=== PATIENT | female | born 1950 | race Caucasian/White ===

== ENCOUNTER 2022-04-06 14:14 | Inpatient (IN) | payer OTHER ==
[~2022-04-06] VITALS: Ht 149.9 cm; Wt 73.2 kg
[~2022-04-06 14:14] MED LIST: ALBU-118 IH; ATOR40TA PO; BUDE1AER IH; CIPR500T4 PO; OLAN2.5T1 PO; PRED5TAB7 PO; SYN.05 PO
[2022-04-06 14:29] VITALS: BP 138/89
--- NOTE | 2022-04-06 15:01 | NUR ---
PT IN CHAIR D. PT ON OXYGEN MONITORING AT THIS TIME, 94% RA.
[2022-04-06] MEDS ORDERED: ALBUTEROL 0.083% 2.5 MG/3 ML NEBU INH ONE (15:20)
[2022-04-06] MEDS ORDERED: methylPREDNISolone SS 125 MG/2 ML VIAL IVP ONE (15:20)
[2022-04-06] MEDS ORDERED: IPRATROPIUM 0.02% 0.5 MG/2.5 ML NEBU INH ONE (15:20)
[2022-04-06 15:39] LABS: BASOPHILS % (AUTO) 0.5 % (0.0-2.0); EOSINOPHILS # (AUTO) 0.1 K/uL (0-0.4); EOSINOPHILS % (AUTO) 1.3 % (0.0-4.0); HEMOGLOBIN 14.4 g/dL (12.0-16.0); LYMPHOCYTES # (AUTO) 1.3 K/uL (2.5-16.5); LYMPHOCYTES % (AUTO) 16.2 % (20.5-51.1); MEAN CORPUSCULAR HEMOGLOBIN 33 pg (27-31); MEAN CORPUSCULAR HGB CONC 33 g/dL (33-37); MEAN CORPUSCULAR VOLUME 97.7 fL (80-94); MONOCYTES % (AUTO) 11.7 % (1.7-9.3); NEUTROPHILS # (AUTO) 5.9 K/uL (1.8-7.7); NEUTROPHILS % (AUTO) 70.3 % (42.2-75.2); PLATELET COUNT (AUTO) 240 K/uL (140-450); RED BLOOD CELL COUNT(AUTO) 4.41 MIL/uL (4.20-5.40); RED CELL DISTRIBUTION WIDTH 14.4 % (11.6-13.7); WHITE BLOOD COUNT (AUTO) 8.3 K/uL (4.8-10.8)
[2022-04-06 15:57] LABS: ALBUMIN 3.1 g/dL (3.4-5.0); ANION GAP 8.2 (8-16); ASPARTATE AMINOTRANSFERASE 41 U/L (15-37); CARBON DIOXIDE 33.8 mmol/L (21-32); CHLORIDE 102 mmol/L (98-107); CREATININE 0.9 mg/dL (0.6-1.3); GLUCOSE 83 mg/dL (74-106); SODIUM SERUM 140 mmol/L (136-145); TOTAL BILIRUBIN 0.5 mg/dL (0.0-1.0); UREA NITROGEN, BLOOD 14 mg/dL (7-18)
--- NOTE | 2022-04-06 16:37 | NUR ---
SPO2 DROPPED TO 84%. DR MARK COLLINS, PT PLACED ON 2L N.C
[2022-04-06] MEDS ORDERED: methylPREDNISolone SS 125 MG/2 ML VIAL ONE (16:59)
--- NOTE | 2022-04-06 17:56 | NUR ---
SPO2 93% ON 3L N/C PER DR FLORES. PT SLEEPING AT THIS TIME, NO SIGNS OF DISTRESS.
[2022-04-06] MEDS ORDERED: LEVOFLOXACIN 500 MG/D5W PREMIX 100 ML IV ONE (18:45)
[2022-04-06] MEDS ORDERED: POTASSIUM CHLORIDE 10 MEQ TABER PO PRN (18:50)
[2022-04-06] MEDS ORDERED: ZOLPIDEM 5 MG TAB PO PRN (18:50)
[2022-04-06] MEDS ORDERED: MAG SULF 2000 MG/WATER PREMIX 50 ML IV PRN (18:50)
[2022-04-06] MEDS ORDERED: KCL 20 MEQ/WATER INJ PREMIX 200 ML IV PRN (18:50)
[2022-04-06] MEDS ORDERED: HYDROcodone/APAP 5/325 MG 1 TAB TAB PO PRN (18:50)
[2022-04-06] MEDS ORDERED: ACETAMINOPHEN 325 MG TAB PO PRN (18:50)
[2022-04-06] MEDS ORDERED: ONDANSETRON 4 MG/2 ML VIAL IVP PRN (18:50)
[2022-04-06] MEDS: ALBUTEROL SULFATE/IPRATROPIU 3 ML SOL IH SCH (19:29)
--- NOTE | 2022-04-06 21:00 | NUR ---
DUE MEDS GIVEN , PATENT TOLERATED WELL.
[2022-04-07] MEDS: ALBUTEROL SULFATE/IPRATROPIU 3 ML SOL IH SCH ×4 (00:45→23:05)
--- NOTE | 2022-04-07 04:32 | NUR ---
pt came to bed 3 at 0432. she is alert and oriented x 4 with nasal canulla 3 and satting at 90 persent . she is ambulatory. follow commands.
[2022-04-07 05:57] LABS: ANION GAP 13.4 (8-16); CARBON DIOXIDE 30.1 mmol/L (21-32); CHLORIDE 101 mmol/L (98-107); CREATININE 0.8 mg/dL (0.6-1.3); GLUCOSE 132 mg/dL (74-106); POTASSIUM 4.5 mmol/L (3.5-5.1); SODIUM SERUM 140 mmol/L (136-145); UREA NITROGEN, BLOOD 16 mg/dL (7-18)
[2022-04-07 06:36] LABS: BASOPHILS % (AUTO) 0.1 % (0.0-2.0); HEMOGLOBIN 13.9 g/dL (12.0-16.0); LYMPHOCYTES # (AUTO) 0.7 K/uL (2.5-16.5); LYMPHOCYTES % (AUTO) 7.8 % (20.5-51.1); MEAN CORPUSCULAR HEMOGLOBIN 32 pg (27-31); MEAN CORPUSCULAR HGB CONC 33 g/dL (33-37); MEAN CORPUSCULAR VOLUME 97.7 fL (80-94); MONOCYTES # (AUTO) 0.2 K/uL (0.8-1.0); MONOCYTES % (AUTO) 2.3 % (1.7-9.3); NEUTROPHILS # (AUTO) 7.5 K/uL (1.8-7.7); NEUTROPHILS % (AUTO) 89.8 % (42.2-75.2); PLATELET COUNT (AUTO) 263 K/uL (140-450); RED CELL DISTRIBUTION WIDTH 14.1 % (11.6-13.7); WHITE BLOOD COUNT (AUTO) 8.4 K/uL (4.8-10.8)
--- NOTE | 2022-04-07 07:00 | NUR ---
syntroid not abvailbe in the omincell in the er witf the dose that ordered. called the pharmacy and said they will be bringing the meds to er
--- NOTE | 2022-04-07 07:24 | NUR ---
PATIENT HAS BEEN SCREENED AND CATEGORIZED MODERATE NUTRITION RISK. PATIENT WILL BE SEEN WITHIN 3-5 DAYS OF ADMISSION. 04/09/[address]
--- NOTE | 2022-04-07 08:48 | NUR ---
Patient appears to be resting comfortably in bed. Vital Signs within normal limits.
[2022-04-07] MEDS: ATORVASTATIN 20 MG TAB PO SCH (08:52)
[2022-04-07] MEDS: methylPREDNISolone SS 40 MG/ML VIAL IVP SCH (08:55)
[2022-04-07] MEDS: ENOXAPARIN 40 MG/0.4 ML SYR SUBQ SCH (08:55)
--- NOTE | 2022-04-07 09:15 | NUR ---
Received pt alert and oriented x4. On 4L O2 via nasal cannula. Sinus rhythm on tele monitor. Abd soft with active bowel sounds. Continent bowel and bladder. Pt gait steady with no difficulty walking Peripheral IV 20 gauge on right wrist intact and saline locked. Oriented pt to environment. Safety precautions in place.
--- NOTE | 2022-04-07 09:15 | NUR ---
Patient will be admitted to care of Danna URBAN. Admitted to Telemetry. Will go to room 127A. Belongings list completed. Report to Anne-Marie MORALES.
[2022-04-07] MEDS: LEVOTHYROXINE 0.075 MG TAB PO SCH (09:54)
[2022-04-07] MEDS: OSELTAMIVIR PHOSPHATE 75 MG CAP PO SCH ×2 (10:21→21:20)
--- NOTE | 2022-04-07 10:30 | NUR ---
Daughter Cindy at bedside answering questions regarding pt history.
[2022-04-07 12:00] VITALS: BP 121/73
--- NOTE | 2022-04-07 13:18 | NUR ---
PT POSITIVE FOR INFLUENZA A THEREFORE, PT NOT SEEN IN PERSON. OUTREACHED TO PTS EMERGENCY CONTACT, MARTY GAONA TO GATHER COLLATERAL INFORMATION. MARTY REQUESTED SW TO CALL HER SISTER, ALICIA TORRES, SHE HAS ALL CURRENT INFORMATION FOR PT. OUTREACHED TO ALICIA, , HOWEVER, NO ANSWER. MESSAGE WAS LEFT REQUESTING A RETURN PHONE CALL. SW TO FOLLOW
[2022-04-07 16:00] VITALS: BP 141/81
--- NOTE | 2022-04-07 16:00 | NUR ---
MADE ROUNDS. PT RESTING IN BED. NO SIGNS OF DISTRESS. NO C/O CHEST PAIN.
--- NOTE | 2022-04-07 16:35 | NUR ---
DC PLANNING PATIENT CURRENTLY POSITIVE FOR INFLUENZA A THEREFORE PT WAS NOT SEEN IN PERSON. COLLATERAL INFORMATION GATHERED FROM PTS DAUGHTER, ALICIA TORRES, . ALICIA REPORTS PT RESIDES ON A SECOND FLOOR APT, ALONE,AT THE ADDRESS LISTED ON FILE. ALICIA IDENTIFIED HERSELF, AND MARTY, DAUGHTER, PTS EMERGENCY CONTACTS. ALICIA DENIES KNOWLEDGE OF AD IN PLACE AND ACCEPTED AD OFFERED BY . PT IS REPORTED TO MEET WITH PCP REGULARLY, LAST VISIT; 04/06/22. PT IS REPORTED TO BE MEDICATION COMPLIANT AND FAMILY DENIES BARRIERS IN ACCESS TO MEDICATIONS. [facility] [facility] [place], WHEN NEEDED. PT IS REPORTED TO BE INDEPENDENT IN ALL ACTIVITIES, NO USE OF DME REPORTED. PT IS REPORTED TO COMPLETE ALL ADLS INDEPENDENTLY EXCEPT FOR WHEN SHE FEELS ILL, WHICH THEN FAMILY AID IN ASSISTANCE. 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 NOTIFIED ALICIA THAT I WOULD MENTION TO CM HOWEVER, PT DOES NEED TO MEET REQUIREMENT FOR HOME O2, ALICIA IN UNDERSTANDING. ALICIA REPORTS ALTHOUGH PT IS INDEPENDENT IN ALL ACTIVITIES SHE VISITS WITH PT DAILY TO ENSURE SAFETY AND ALL NEEDS ARE MET. 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 ALICIA DENIES HX OF SNF, HH, DIABETES, DIALYSIS [place]. ALICIA REPORTS DC PLAN IS FOR PT TO RETURN HOME WHEN MEDICALLY STABLE. FAMILY TO PROVIDE TRANSPORTATION WHEN PT CLEARED FOR DC. Addendum: 04/08/22 at 0914 by Thee KELLEY Amended: Links added.
--- NOTE | 2022-04-07 19:42 | NUR ---
ENDORSED TO CONDENSER OPERATOR NURSE LIUDMILA WANG FOR CONTINUITY OF CARE.
[2022-04-07 20:00] VITALS: BP 130/76
--- NOTE | 2022-04-07 22:00 | NUR ---
ALL DUE MEDS GIVEN ORDERED. NO ADVERSE DRUG REACTION NOTED AND NO COMPLAIN FROM THE PATIENT. WILL CONTINUE POC.
[2022-04-08] VITALS: BP 155/72
--- NOTE | 2022-04-08 | NUR ---
PATIENT VITAL SIGNS STABLE, AFEBRILE, SATING 93% ON 4L/NC. PT NOT ON ANY DISTRESS AND NO COMPLAIN OF PAIN AT THIS TIME. WILL CONTINUE OBSERVATION.
[2022-04-08] MEDS: ALBUTEROL SULFATE/IPRATROPIU 3 ML SOL IH SCH ×4 (01:22→20:01)
--- NOTE | 2022-04-08 03:18 | NUR ---
PATIENT IS ASLEEP, NO PAIN NOTED, NO SIGNS OF DISTRESS NOTED.
[2022-04-08 04:00] VITALS: BP 107/66
[2022-04-08] MEDS: LEVOTHYROXINE 0.075 MG TAB PO SCH (05:40)
--- NOTE | 2022-04-08 05:40 | NUR ---
DUE MEDICATION GIVEN ORDERED. PATIENT DENIES PAIN. CALL LIGHT WITHIN REACH. WILL CONTINUE TO MONITOR THE PATIENT.
--- NOTE | 2022-04-08 06:13 | NUR ---
NO ACUTE EVENTS THROUGHOUT THE NIGHT. PATIENT STABLE AND NOT ON ANY DISTRESS. PATIENT HAS NO COMPLAIN AT THIS TIME. ALL NEEDS ATTENDED. CALL LIGHT WITHIN REACH. WILL ENDORSE THE PATIENT TO THE ONCOMING NURSE FOR CONTINUITY OF CARE.
[2022-04-08 06:17] LABS: ANION GAP 9.7 (8-16); CARBON DIOXIDE 34.7 mmol/L (21-32); CHLORIDE 103 mmol/L (98-107); CREATININE 0.9 mg/dL (0.6-1.3); POTASSIUM 5.4 mmol/L (3.5-5.1); SODIUM SERUM 142 mmol/L (136-145); UREA NITROGEN, BLOOD 21 mg/dL (7-18)
[2022-04-08 06:19] LABS: HEMOGLOBIN 13.1 g/dL (12.0-16.0); LYMPHOCYTES # (AUTO) 1.4 K/uL (2.5-16.5); LYMPHOCYTES % (AUTO) 10.6 % (20.5-51.1); MEAN CORPUSCULAR HEMOGLOBIN 32 pg (27-31); MEAN CORPUSCULAR HGB CONC 33 g/dL (33-37); MEAN CORPUSCULAR VOLUME 97.6 fL (80-94); MONOCYTES # (AUTO) 1.2 K/uL (0.8-1.0); MONOCYTES % (AUTO) 9.1 % (1.7-9.3); NEUTROPHILS # (AUTO) 10.5 K/uL (1.8-7.7); NEUTROPHILS % (AUTO) 80.3 % (42.2-75.2); PLATELET COUNT (AUTO) 274 K/uL (140-450); RED BLOOD CELL COUNT(AUTO) 4.09 MIL/uL (4.20-5.40); RED CELL DISTRIBUTION WIDTH 13.9 % (11.6-13.7); WHITE BLOOD COUNT (AUTO) 13.1 K/uL (4.8-10.8)
[2022-04-08 06:30] LABS: GLUCOSE 120 mg/dL (74-106)
--- NOTE | 2022-04-08 07:12 | NUR ---
ENDORSED PATIENT TO DAY NURSE FOR CONTINUITY OF CARE. PATIENT IS STABLE.
[2022-04-08] MEDS ORDERED: ALBUTEROL SULFATE/IPRATROPIU 3 ML SOL IH PRN (07:15)
[2022-04-08 08:00] VITALS: BP 129/82
[2022-04-08] MEDS ORDERED: ALBUTEROL 0.083% 2.5 MG/3 ML NEBU INH PRN (08:20)
[2022-04-08] MEDS: OSELTAMIVIR PHOSPHATE 75 MG CAP PO SCH ×2 (08:37→20:29)
[2022-04-08] MEDS: ATORVASTATIN 20 MG TAB PO SCH (08:38)
[2022-04-08] MEDS: AZITHROMYCIN 250 MG TAB PO SCH (08:38)
[2022-04-08] MEDS: ENOXAPARIN 40 MG/0.4 ML SYR SUBQ SCH (08:46)
[2022-04-08] MEDS: methylPREDNISolone SS 40 MG/ML VIAL IVP SCH (09:00)
[2022-04-08] MEDS ORDERED: guaiFENesin/CODEINE 100/10MG 5 ML UDC PO PRN (09:15)
--- NOTE | 2022-04-08 10:46 | NUR ---
SCHEDULED MEDICATIONS DUE GIVEN. WILL CONTINUE TO MONITOR.
[2022-04-08 12:00] VITALS: BP 107/74
[2022-04-08 16:00] VITALS: BP 110/59
--- NOTE | 2022-04-08 19:20 | NUR ---
RECEIVED REPORT FROM DAY SHIFT NURSE FOR CONTINUITY OF CARE. PATIENT SITIING ON BED, AROUSABLE BY VOICE. NO DISTRESS NOTED. ON O2 4L VIA NC AT 96 O2 SAT. SKIN INTACT. R WRIST G20 SL. PATENT AND INTACT. ALL SAFETY MEASURES IN PLACE, CALL LIGHT WITHIN REACH. WILL CONTINUE TO MONITOR.
[2022-04-08 20:00] VITALS: BP 123/99
--- NOTE | 2022-04-08 21:00 | NUR ---
SCHEDULED MEDICATIONS DUE GIVEN. WILL CONTINUE TO MONITOR.
[2022-04-09] VITALS: BP 119/68
[2022-04-09] MEDS: ALBUTEROL SULFATE/IPRATROPIU 3 ML SOL IH SCH ×2 (01:06→13:50)
--- NOTE | 2022-04-09 02:03 | NUR ---
PT ASLEEP. NO S/SX OF DISTRESS NOTED. BREATHING EVEN AND UNLABORED, ON 4L O2 VIA NC. O2 SAT AT 96%. ALL PRECAUTIONS IN PLACE. CALL LIGHT WITHIN REACH. WILL CONTINUE TO MONITOR.
[2022-04-09 04:00] VITALS: BP 117/58
[2022-04-09] MEDS: LEVOTHYROXINE 0.075 MG TAB PO SCH (06:43)
[2022-04-09 06:46] LABS: BASOPHILS % (AUTO) 0.1 % (0.0-2.0); HEMATOCRIT 39.6 % (36-48); HEMOGLOBIN 13.1 g/dL (12.0-16.0); LYMPHOCYTES # (AUTO) 1.9 K/uL (2.5-16.5); LYMPHOCYTES % (AUTO) 13.2 % (20.5-51.1); MEAN CORPUSCULAR HEMOGLOBIN 33 pg (27-31); MEAN CORPUSCULAR HGB CONC 33 g/dL (33-37); MEAN CORPUSCULAR VOLUME 97.8 fL (80-94); MONOCYTES % (AUTO) 6.9 % (1.7-9.3); NEUTROPHILS # (AUTO) 11.7 K/uL (1.8-7.7); NEUTROPHILS % (AUTO) 79.8 % (42.2-75.2); PLATELET COUNT (AUTO) 284 K/uL (140-450); RED BLOOD CELL COUNT(AUTO) 4.04 MIL/uL (4.20-5.40); RED CELL DISTRIBUTION WIDTH 13.8 % (11.6-13.7); WHITE BLOOD COUNT (AUTO) 14.7 K/uL (4.8-10.8)
--- NOTE | 2022-04-09 06:55 | NUR ---
PT IS STABLE. NO ACUTE EVENTS THROUGHOUT THE NIGHT. BREATHING EVEN AND UNLABORED, O2 SAT AT 96.ON 3L VIA NC .S/SX OF DISTRESS AT THIS TIME. NO COMPLAINS OF PAIN. ALL PRECAUTIONS IN PLACE. CALL LIGHT WITHIN REACH. WILL ENDORSE TO AM SHIFT NURSE. .
[2022-04-09 07:30] LABS: ANION GAP 12.5 (8-16); CARBON DIOXIDE 32.2 mmol/L (21-32); CHLORIDE 102 mmol/L (98-107); CREATININE 0.8 mg/dL (0.6-1.3); GLUCOSE 102 mg/dL (74-106); POTASSIUM 4.7 mmol/L (3.5-5.1); SODIUM SERUM 142 mmol/L (136-145); UREA NITROGEN, BLOOD 18 mg/dL (7-18)
[2022-04-09 08:00] VITALS: BP 122/70
--- NOTE | 2022-04-09 08:00 | NUR ---
RECEIVED REPORT FROM LEGAL RECEPTIONIST FOR CONTINUITY OF CARE. PATIENT IS ALERT AWAKE ORIENTED X4, NOT IN ACUTE DISTRESS NOTED. DENIES PAIN AT THIS TIME. ON MONITOR SHOWS SB. ON DROPLET ISOLATION OBSERVED. CALL LIGHT WITHIN REACH. NEEDS ATTENDED. WILL CONTINUE TO MONITOR.
[2022-04-09] MEDS: methylPREDNISolone SS 40 MG/ML VIAL IVP SCH (08:50)
[2022-04-09] MEDS: ENOXAPARIN 40 MG/0.4 ML SYR SUBQ SCH (08:51)
[2022-04-09] MEDS: ATORVASTATIN 20 MG TAB PO SCH (08:51)
[2022-04-09] MEDS: AZITHROMYCIN 250 MG TAB PO SCH (08:51)
[2022-04-09] MEDS: OSELTAMIVIR PHOSPHATE 75 MG CAP PO SCH (08:59)
--- NOTE | 2022-04-09 09:00 | NUR ---
ALL DUE MEDICATION GIVEN AND TOLERATED WELL. PUT O2 ON 2OL, SATURATION 97%.
--- NOTE | 2022-04-09 10:00 | NUR ---
SEEN BY DR. RAHMAN WITH DC ORDER.
[2022-04-09] MEDS ORDERED: PRED20TA5 PO (10:05)
[2022-04-09] MEDS ORDERED: TAM75 PO (10:05)
[2022-04-09] MEDS ORDERED: LEVO750T75 PO (10:07)
[2022-04-09 12:00] VITALS: BP 150/85
--- NOTE | 2022-04-09 13:50 | NUR ---
IV AND HEART MONITOR REMOVED. DC PAPERS SIGNED. NOTIFIED DAUGHTER MARTY REGARDING DC ORDER. WILL CONTINUE TO MONITOR.
--- NOTE | 2022-04-09 14:58 | NUR ---
DISCHARGE INSTRUCTION GIVEN AND VERBALIZED UNDERSTANDING. PATIENT IN STABLE CONDITION.
[2022-04-10] MEDS ORDERED: predniSONE 20 MG TAB PO SCH (09:00)
== END 2022-04-09 15:00 | disposition home or self-care (01) | DRG 193 ==
LOC: MED 14:14 → MTU 18:53 → MMU 04-07 08:42 → OBSVTOIN 04-07 12:00
PROVIDERS: ADMIT Internal Medicine; ATTEND Internal Medicine
DX: J10.1 Influenza due to other identified influenza virus with other respiratory manifestations (principal); J96.01 Acute respiratory failure with hypoxia; J44.1 Chronic obstructive pulmonary disease with (acute) exacerbation; J45.901 Unspecified asthma with (acute) exacerbation; R65.10 Systemic inflammatory response syndrome (SIRS) of non-infectious origin without acute organ dysfunction; J20.9 Acute bronchitis, unspecified; E66.9 Obesity, unspecified; Z20.822 Contact with and (suspected) exposure to COVID-19; I10 Essential (primary) hypertension; E03.9 Hypothyroidism, unspecified; Z88.0 Allergy status to penicillin; Z68.32 Body mass index [BMI] 32.0-32.9, adult
CPT/HCPCS: 96365; 96375; 99285; G0378; 36415; 71045; 80048; 80053; 83735; 83880; 84484; 85025; 87040; 87081; 93005; 94640; J0696; J1650; J1956; J2920; J2930; J7060; J7613; J7644